=== PATIENT | male | born 1965 | race Caucasian/White ===

== ENCOUNTER 2021-08-07 16:46 | Emergency (ER) | payer SELFPAY ==
--- NOTE | 2021-08-07 18:26 | EDM.PDOC ---
ED [facility] GENERAL MEDICAL PROBLEM - General Chief Complaint: Chest Pain Stated Complaint: HIGH BLOOD PRESSURE, SHOULDER PAIN Time Seen by Provider: 08/07/21 18:29 - History of Present Illness INITIAL COMMENTS - FREE TEXT/NARRATIVE: Patient is a 5-year-old male with past medical history of hypertension presenting with chief complaint of left anterior shoulder pain. Patient reports the shoulder pain has been present for several weeks. States the pain is better when he lifts his arm above his head. He does not have any associated chest pain, nausea, vomiting, shortness of breath. Patient does state for the past few days has been feeling "off". Patient unable to characterize this further. States he feels some fatigue. Otherwise, he denies any difficulty breathing, fevers, recent illnesses. Patient states he stopped taking blood pressure medication several months ago because he did not like the way it made him feel. He has not followed up with primary care since then. Left Shoulder Pain Score (Numeric/FACES): 3 - Related Data Allergies Allergy/AdvReac Type Severity Reaction Status Date / Time No Known Allergies Allergy Verified 08/07/21 17:04 Past Medical History Cardiovascular History: Reports: Hypertension Social & Family History - Tobacco Use Tobacco Use Status *Q: Never Tobacco User ED ROS GENERAL - Review of Systems Review Of Systems: See Below Free Text/Narrative/Comment: In addition to that documented in the HPI above, the additional ROS was obtained: Constitutional: Denies fevers or chills Eyes: Denies vision changes ENMT: Denies sore throat CV: Denies chest pain Resp: Denies SOB GI: Denies vomiting or diarrhea : Denies painful urination MSK: Denies recent trauma Skin: Denies new rashes Neuro: Denies new numbness or tingling or weakness Endocrine: Denies unexpected weight loss Heme: Denies bleeding disorders ED EXAM, GENERAL - Physical Exam Exam: See Below Free Text/Narrative:: I have reviewed the triage vital signs Const: Well nourished, well developed, appears stated age Eyes: Pupils Equal and reactive to light bilaterally, no conjunctival injection HENT: No signs of trauma or swelling, Neck supple without meningismus CV: Regular Rate Rhythm, Warm, well-perfused extremities RESP: Unlabored respiratory effort GI: soft, non-tender, non-distended, no masses MSK: Point tenderness to left acromioclavicular joint. No gross deformities appreciated. Demonstrating full active range of motion of the left shoulder. Skin: Warm, dry. No rashes Neuro: Alert, wet cleaner machine II-XII grossly intact. Sensation and motor function of extremities grossly intact. Psych: Appropriate mood and affect. #1 Interpretation EKG Date: 08/07/21 Time: 17:37 Rhythm: NSR Rate (Beats/Min): 75 [place]: RAD-Right [place] Deviation P-Wave: Present QRS: Normal ST-T: Normal QT: Normal Comparison: NA - No Prior EKG EKG Interpretation Comments: Borderline normal EKG. No STEMI. No ischemic changes. Course - Vital Signs Last Recorded V/S: Last Vital Signs Temp 36.3 C 08/07/21 17:02 Pulse 71 08/07/21 17:02 Resp 18 08/07/21 17:02 BP 158/102 H 08/07/21 17:02 Pulse Ox 98 08/07/21 17:02 - Orders/Labs/Meds Orders: Active Orders 24 hr Category Date Time Status Chest 1V Frontal [CR] Stat Exams 08/07/21 17:28 Taken Labs: Laboratory Tests 08/07/21 08/07/21 Range/Units 17:28 17:30 WBC 7.61 (4.23-9.07) K/mm3 RBC 5.53 (4.63-6.08) M/mm3 Hgb 16.4 (13.7-17.5) gm/dl Hct 46.4 (40.1-51.0) % MCV 83.9 (79.0-92.2) fl MCH 29.7 (25.7-32.2) pg MCHC 35.3 (32.2-35.5) g/dl RDW Std Deviation 40.2 (35.1-43.9) fL Plt Count 283 (163-337) K/mm3 MPV 9.1 L (9.4-12.3) fl Neut % (Auto) 66.3 (34.0-67.9) % Lymph % (Auto) 22.5 (21.8-53.1) % Barton % (Auto) 10.1 (5.3-12.2) % Eos % (Auto) 0.7 L (0.8-7.0) Baso % (Auto) 0.3 (0.1-1.2) % Neut # (Auto) 5.05 (1.78-5.38) K/mm3 Lymph # (Auto) 1.71 (1.32-3.57) K/mm3 Barton # (Auto) 0.77 (0.30-0.82) K/mm3 Eos # (Auto) 0.05 (0.04-0.54) K/mm3 Baso # (Auto) 0.02 (0.01-0.08) K/mm3 Sodium 138 (136-145) mEq/L Potassium 4.1 (3.5-5.1) mEq/L Chloride 99 (98-107) mEq/L Carbon Dioxide 30 (21-32) mEq/L Anion Gap 13.1 (5-15) BUN 22 H (7-18) mg/dL Creatinine 1.6 H (0.7-1.3) mg/dL Est Cr Clr Drug Dosing 57.93 mL/min Estimated GFR (MDRD) 45 (>60) mL/min BUN/Creatinine Ratio 13.8 L (14-18) Glucose 95 (70-99) mg/dL Calcium 9.1 (8.5-10.1) mg/dL Total Bilirubin 0.8 (0.2-1.0) mg/dL AST 23 (15-37) U/L ALT 55 (16-63) U/L Alkaline Phosphatase 55 (46-116) U/L Troponin I < 0.017 (0.00-0.056) ng/mL Total Protein 7.5 (6.4-8.2) g/dl Albumin 4.3 (3.4-5.0) g/dl Globulin 3.2 gm/dL Albumin/Globulin Ratio 1.3 (1-2) Departure - Departure Time of Disposition: 18:25 Disposition: Home, Self-Care 01 Clinical Impression: Atypical chest pain Instructions: Nonspecific Chest Pain, Adult, [id number] Referrals: PCP,None [Primary Care Provider] - Forms: ED Department Discharge Additional Instructions: Please follow-up with primary care in the next several days to evaluate blood pressure. Return to the emergency room for worsening symptoms or any other emergent concerns. Please avoid any strenuous physical activity for the next several days as well. Sepsis Event Note (ED) - Evaluation Sepsis Screening Result: No Definite Risk - Focused Exam Vital Signs: Vital Signs Temp Pulse Resp BP Pulse Ox 08/07/21 17:02 36.3 C 71 18 158/102 H 98 - My Orders Last 24 Hours: My Active Orders 08/07/21 17:28 Chest 1V Frontal [CR] Stat - Assessment/Plan Last 24 Hours: My Active Orders 08/07/21 17:28 Chest 1V Frontal [CR] Stat Assessment:: Patient 55-year-old male presented to the emergency room with a chief complaint of left anterior shoulder pain. Patient had unremarkable ER course. Evaluation in the emergency room demonstrates no significant normalities to the EKG, laboratory testing. Chest x-ray appears to be within normal limits. Extremely low probability that this patient has cardiac chest pain or other angina equivalent. Patient instructed to follow-up with primary care to further evaluate blood pressure and this shoulder pain. Return precautions discussed as usual. Patient agrees with plan of care.
--- NOTE | 2021-08-08 10:17 | CR ---
EXAM: XR CHEST 1 VIEW LOCATION: [facility] [employer] DATE/TIME: 08/07/2021 5:46 PM INDICATION: Dyspnea COMPARISON: None. IMPRESSION: Heart size and pulmonary vessels are normal. Lungs are clear. Old left clavicular fracture. SIGNED BY: Joseph Alvarez MD 08/07/2021 10:44 PM [facility]
== END 2021-08-07 18:35 | disposition home or self-care (01) ==
LOC: JD.ED 16:46
DX: R07.89 Other chest pain (principal); I10 Essential (primary) hypertension
CPT/HCPCS: 36415; 71045; 71045-26; 80053; 84484; 85025; 93005; 99285-25